=== PATIENT | female | born 1965 ===

== ENCOUNTER → 2017-11-24 | Outpatient (REF) | payer OTHER ==
[2017-11-24 16:35] LABS: HEMATOCRIT 34.4 % (36.0-47.0); HEMOGLOBIN 10.9 g/dl (12.0-15.5); MEAN CORPUSCULAR HEMOGLOBIN 27.9 pg (27.0-33.0); MEAN CORPUSCULAR HGB CONC 31.7 g/dl (32.0-36.5); MEAN CORPUSCULAR VOLUME 88.2 fl (80.0-96.0); PLATELET COUNT, AUTOMATED 251 10^3/uL (150-450); WHITE BLOOD COUNT 5.6 10^3/uL (4.0-10.0)
== END ==
LOC: M LAB REF 16:08
DX: Z79.899 Other long term (current) drug therapy (principal)
CPT/HCPCS: 85027